=== PATIENT | female | born 1955 ===

== ENCOUNTER 2017-10-29 13:48 | Emergency (ER) | payer MEDICAID ==
[2017-10-29 13:48] VITALS: BMI 35.1
--- NOTE | 2017-10-29 14:38 | C.PDOC ---
History Of Present Illness 62 year old female with PMHx of diabetes, hypertension, arthritis, and thyroid disease, presents to the ER for an evaluation. Patient [place] the park [place] when she started feeling some discomfort in her left leg radiating to her left buttock and down to mid thigh. Patient was able to ambulate and symptoms resolved. This morning she woke up at 0300 to go to the bathroom and she felt a new onset of aching to her left arm and numbness in her left hand with similar symptoms in her leg. She reports she had intermittent numbness in her hand and leg until 0600 this morning when symptoms resolved. She denies any headache, shortness of breath, photophobia, or vision changes. She is currently asymptomatic. Time Seen by Provider: 10/29/17 14:21 Chief Complaint (Nursing): Weakness/Neurological Deficit History Per: Patient History/Exam Limitations: no limitations Onset/Duration Of Symptoms: Days Current Symptoms Are (Timing): Still Present Activity At Onset Of Symptoms: Walking Past Medical History Reviewed: Historical Data, Nursing Documentation, Vital Signs Vital Signs: Last Vital Signs Temp 98.6 F 10/29/17 13:58 Pulse 64 10/29/17 13:58 Resp 15 10/29/17 13:58 BP 94/64 L 10/29/17 13:58 Pulse Ox 95 10/29/17 14:42 - Medical History PMH: HTN, Hyperthyroidism Surgical History: - [facility] INJECT/INFUSE NEC (08/26/06) Family History: States: No Known Family Hx - Social History Hx Alcohol Use: No Hx Substance Use: No - Immunization History Hx Tetanus Toxoid Vaccination: No Hx Influenza Vaccination: Yes (12/2014) Hx Pneumococcal Vaccination: No Review Of Systems Eyes: Negative for: Vision Change Cardiovascular: Negative for: Chest Pain Respiratory: Negative for: Shortness of Breath Neurological: Positive for: Numbness (Intermittent numbness in hands and aching to legs and arms. Symptoms resolved. ). Negative for: Headache Physical Exam - Physical Exam Appears: Non-toxic, No Acute Distress Skin: Normal Color, Warm, Dry Head: Atraumatic, Normacephalic Eye(s): bilateral: Normal Inspection Nose: Normal Oral Mucosa: Moist Neck: Supple Chest: Symmetrical Cardiovascular: Rhythm Regular Respiratory: Normal Breath Sounds, No Rales, No Rhonchi, No Wheezing Gastrointestinal/Abdominal: Normal Exam, No Soft, No Tenderness, No Guarding Extremity: Normal ROM Extremity: Bilateral: Atraumatic, No Pedal Edema, Normal Color And Temperature, Normal ROM Neurological/Psych: Oriented x3, Normal Speech, Normal Motor, Normal Sensation, No Other (Focal deficits ) Gait: Steady ED Course And Treatment - Laboratory Results Result Diagrams: 10/29/17 14:38 10/29/17 14:38 Lab Interpretation: No Acute Changes ECG: Interpreted By Me ECG Rhythm: Sinus Rhythm (With 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 : [id number]. Patient Name / ID : NICOLAS HOUSE / [id number]. Exam Date : 10/29/2017 16:33:25 ( Approved ). Study Comment : Sex / Age : F / 62Y. Creator : Nancy Mclean. Dictator : Samm Merida MD. Plumber Pipe Fitting : Hospice Superintendent : Samm Merida MD. Approver2 : Report Date : 10/29/2017 16:36:42. My Comment : . Date of service: 10/29/2017. PROCEDURE: CT HEAD WITHOUT CONTRAST. HISTORY: R/O Bleed. Left arm numbness. COMPARISON: None available. TECHNIQUE: Axial computed tomography images were obtained through the head/brain without intravenous contrast. Radiation dose: Total exam DLP = 844 mGy-cm. This CT exam was performed using one or more of the following dose reduction techniques : Automated exposure control, adjustment of the mA and/or kV according to patient size, and/or use of iterative reconstruction technique. FINDINGS: HEMORRHAGE: No intracranial hemorrhage. BRAIN: Atrophy. Scattered focal lucencies in the subcortical and periventricular white matter suggestive for chronic microvascular ischemic change. Mild fullness in the suprasellar cistern. VENTRICLES: Unremarkable. No hydrocephalus. CALVARIUM: Unremarkable. PARANASAL SINUSES: Unremarkable as visualized. No significant inflammatory changes. MASTOID AIR CELLS: Unremarkable as visualized. No inflammatory changes. OTHER FINDINGS: Intracranial arterial calcifications. Calcifications of the choroid plexus and pineal glands. IMPRESSION: Atrophy. Chronic microvascular ischemic change. Mild nonspecific fullness in the suprasellar cistern. Correlation with pituitary MRI may be helpful for further evaluation if clinically indicated. If there is persistent concern for acute ischemic change, correlation with MRI may be helpful. Reevaluation Time: 17:53 Reassessment Condition: Improved (Patient remains asymptomatic.) NIHSS Stroke Scale 2 - Date/Time Evaluation Performed Date Performed: 10/29/17 Time Performed: 14:25 When Was NIHSS Performed: Baseline - How Severe is the Stroke Level of Consciousness: 0=Alert LOC to Questions: 0=Both comments correct LOC to commands: 0=Obeys both correctly Best Gaze: 0=Normal Visual: 0=No visual loss Facial: 0=Normal Motor Arm - Left: 0=No drift Motor Arm - Right: 0=No drift Motor Leg - Left: 0=No drift Motor Leg - Right: 0=No drift Limb Ataxia: 0=Absent Sensory: 0=Normal Best Language: 0=No aphasia Dysarthia: 0=Normal articulation Extinction & Inattention (Neglect): 0=Normal, no object Score: 0 Severity Of Stroke: 0 = No Stroke Medical Decision Making Medical Decision Making: Orders: - CT head - EKG - CXR - UA - Labs Disposition Counseled Patient/Family Regarding: Studies Performed, Diagnosis, Need For Followup - Disposition Referrals: Sung Johnson MD [Staff Provider] - Disposition: HOME/ ROUTINE Disposition Time: 17:55 Condition: STABLE Instructions: Paresthesias (DC) Forms: [facility] (Monegasque) Print Language: [place] - Clinical Impression Clinical Impression: Paresthesia and pain of left extremity - Scribe Statement The provider has reviewed the documentation as recorded by the Scribe Leandra Lentz All medical record entries made by the Scribe were at my direction and personally dictated by me. I have reviewed the chart and agree that the record accurately reflects my personal performance of the history, physical exam, medical decision making, and the department course for this patient. I have also personally directed, reviewed, and agree with the discharge instructions and disposition.
[2017-10-29 14:41] LABS: BASO % 0.3 % (0.0-2.0); HEMOGLOBIN 11.6 g/dL (11.0-16.0); LYMPH # 2.5 K/uL (1.0-4.3); LYMPH % 30.8 % (20.0-40.0); MEAN CORPUSCULAR HEMOGLOBIN 25.5 pg (27.0-31.0); MEAN CORPUSCULAR HGB CONC 32.8 g/dL (33.0-37.0); MEAN PLATELET VOLUME 8.3 fL (7.2-11.7); MONO # 0.5 K/uL (0.0-0.8); MONO % 6.3 % (0.0-10.0); NEUT % 62.6 % (50.0-75.0); RBC 4.54 Mil/uL (3.80-5.20); RED CELL DISTRIBUTION WIDTH 17.7 % (11.5-14.5)
[2017-10-29 14:45] LABS: MEAN CELL VOLUME 77.7 fL (81.0-99.0)
[2017-10-29 14:50] LABS: INR 1.1; PROTHROMBIN TIME 11.8 SECONDS (9.7-12.2)
[2017-10-29 14:59] LABS: ALB/GLOB RATIO 1.3 (1.0-2.1); ALT/SGPT 25 U/L (9-52); AST/SGOT 21 U/L (14-36); BLOOD UREA NITROGEN 23 mg/dL (7-17); CALCIUM 8.6 mg/dl (8.6-10.4); GFR AFRICAN-AMERICAN > 60; GFR NON-AFRICAN AMERICAN > 60
[2017-10-29 15:05] LABS: SQUAMOUS EPITHIAL 2 /hpf (0-5); URINE BACTERIA RARE (<OCC); URINE BILIRUBIN NEGATIVE (NEGATIVE); URINE BLOOD NEGATIVE (NEGATIVE); URINE CLARITY Hazy (Clear); URINE COLOR Yellow (YELLOW); URINE GLUCOSE (UA) NORMAL (Normal); URINE LEUKOCYTE ESTERASE TRACE Leu/uL (Negative); URINE PROTEIN NEGATIVE (NEGATIVE)
--- NOTE | 2017-10-29 15:21 | RAD ---
Chest x-ray single frontal view History: Shortness of breath. Comparison: None available. Findings: Mild venous congestion. Bibasilar breast shadows. Biapical pleural thickening with upper lobe granulomatous changes. Opacity at the right lung apex likely represents end of the 1st right rib. Mild linear atelectatic changes at the lateral aspect of the left midlung zone. Tortuous aorta. Top normal heart size. Degenerative changes in the spine. Impression: Mild venous congestion. Bibasilar breast shadows. Biapical pleural thickening with upper lobe granulomatous changes. Opacity at the right lung apex likely represents end of the 1st right rib. Mild linear atelectatic changes at the lateral aspect of the left midlung zone. Tortuous aorta. Top normal heart size.
--- NOTE | 2017-10-29 16:56 | CT ---
Date of service: 10/29/2017 PROCEDURE: CT HEAD WITHOUT CONTRAST. HISTORY: R/O Bleed. Left arm numbness. COMPARISON: None available. TECHNIQUE: Axial computed tomography images were obtained through the head/brain without intravenous contrast. Radiation dose: Total exam DLP = 844 mGy-cm. This CT exam was performed using one or more of the following dose reduction techniques: Automated exposure control, adjustment of the mA and/or kV according to patient size, and/or use of iterative reconstruction technique. FINDINGS: HEMORRHAGE: No intracranial hemorrhage. BRAIN: Atrophy. Scattered focal lucencies in the subcortical and periventricular white matter suggestive for chronic microvascular ischemic change. Mild fullness in the suprasellar cistern. VENTRICLES: Unremarkable. No hydrocephalus. CALVARIUM: Unremarkable. PARANASAL SINUSES: Unremarkable as visualized. No significant inflammatory changes. MASTOID AIR CELLS: Unremarkable as visualized. No inflammatory changes. OTHER FINDINGS: Intracranial arterial calcifications. Calcifications of the choroid plexus and pineal glands. IMPRESSION: Atrophy. Chronic microvascular ischemic change. Mild nonspecific fullness in the suprasellar cistern. Correlation with pituitary MRI may be helpful for further evaluation if clinically indicated. If there is persistent concern for acute ischemic change, correlation with MRI may be helpful.
[2017-10-29 18:09] VITALS: BP 124/72; PULSE 68; RESP 18; TEMP 98.8; O2SAT 96
== END 2017-10-29 18:18 | disposition home or self-care (01) ==
LOC: C.ER 13:48
DX: R20.2 Paresthesia of skin (principal); I10 Essential (primary) hypertension; E05.90 Thyrotoxicosis, unspecified without thyrotoxic crisis or storm; E11.9 Type 2 diabetes mellitus without complications

== ENCOUNTER 2018-05-14 09:26 | Outpatient (CLI) | payer OTHER | END 2018-05-14 09:27 | disposition home or self-care (01) | LOC: C.RADH 09:26 ==